=== PATIENT | female | born 1965 | race African-American/Black ===

== ENCOUNTER 2020-08-22 13:44 | Emergency (ER) | payer MEDICAID, OTHER ==
[~2020-08-22] VITALS: Ht 162.6 cm; Wt 85.0 kg
[~2020-08-22 13:44] MED LIST: ASPI-1497 PO; ERGO400C; NAPR-679 PO
[2020-08-22] MEDS ORDERED: PANTOPRAZOLE SODIUM 40 MG/VIAL IV STA (16:24)
[2020-08-22] MEDS ORDERED: ONDANSETRON HCL 4MG/2ML INJ IV STA (16:24)
[2020-08-22] MEDS ORDERED: SODIUM CHLORIDE 0.9% 1,000 ML IV ONE ×2 (16:30→21:45)
[2020-08-22 16:36] LABS: CLARITY URINE CLEAR (CLEAR); COLOR URINE DARK YELLOW (YELLOW); KETONES URINE 2+ (NEGATIVE); LEUKOCYTE ESTERASE URINE TRACE (NEGATIVE); NITRITE URINE NEGATIVE (NEGATIVE); OCCULT BLOOD URINE NEGATIVE (NEGATIVE); PH URINE 5.5 (4.5-8.0); PROTEIN URINE TRACE (NEGATIVE); SPECIFIC GRAVITY URINE 1.033 (1.005-1.030)
[2020-08-22 16:43] LABS: BASOPHILS % 0.3 % (0.0-2.0); EOSINOPHILS % 0.4 % (0.0-5.0); HEMATOCRIT. 39.7 % (36.0-48.0); HEMOGLOBIN. 13.6 g/dL (12.0-16.0); LYMPHOCYTES % 23.3 % (20.0-50.0); MEAN CORPUSCULAR HEMOGLOBIN 29.2 pg (28.0-32.0); MEAN CORPUSCULAR VOLUME 85.1 fL (81.0-99.0); MONOCYTES % 10.5 % (2.0-8.0); NEUTROPHILS % 65.5 % (40.0-76.0); PLATELET 186 x1000/uL (130-400); RED BLOOD CELL COUNT 4.67 mill/uL (4.2-5.4); RED CELL DISTRIBUTION WIDTH 14.3 % (11.6-14.6)
[2020-08-22 16:49] LABS: CHLORIDE 107 mEq/L (98-107)
[2020-08-22 16:53] LABS: PROTHROMBIN TIME 10.9 sec (9.6-11.0)
[2020-08-22] MEDS ORDERED: DICYCLOMINE HCL 10MG CAPSULE PO ONE (21:00)
[2020-08-22] MEDS ORDERED: ONDA4TAB11 PO (22:08)
[2020-08-22] MEDS ORDERED: DICY20TA11 MT (22:08)
[2020-08-22] MEDS ORDERED: PROT40 PO (22:08)
[2020-08-22] MEDS ORDERED: IOHEXOL-300 100 ML BOTTLE ONE (22:33)
[2020-08-22 22:42] VITALS: BP 122/76
== END 2020-08-22 22:53 | disposition home or self-care (01) ==
LOC: ER 13:44
DX: K29.70 Gastritis, unspecified, without bleeding (principal); R11.2 Nausea with vomiting, unspecified; F12.10 Cannabis abuse, uncomplicated; I25.2 Old myocardial infarction; I10 Essential (primary) hypertension; Z88.6 Allergy status to analgesic agent; Z98.890 Other specified postprocedural states; Z90.49 Acquired absence of other specified parts of digestive tract
CPT/HCPCS: 36415; 74177; 80053; 81003; 81025; 83690; 85025; 85610; 93005; 96374; 96375; 99285; C9113; J2405; J7030; Q9967; 96365

== ENCOUNTER 2022-01-07 16:52 | Emergency (ER) | payer MEDICAID, OTHER ==
[~2022-01-07] VITALS: Ht 162.6 cm; Wt 82.0 kg
[~2022-01-07 16:52] MED LIST changes: +DICY20TA2 MT; +ONDA4TAB11 PO; +PROT40 PO
[2022-01-07 16:56] VITALS: BP 154/104
== END 2022-01-08 00:35 | disposition left against medical advice (07) ==
LOC: ER 16:52
DX: R07.89 Other chest pain (principal)
CPT/HCPCS: 71045; 93005; 99283